=== PATIENT | male | born 1995 | race Caucasian/White ===

== ENCOUNTER 2022-06-08 13:24 | Outpatient (REF) | payer OTHER, SELFPAY ==
[2022-06-08 14:14] LABS: MANUAL DIFF FLAG NO
[2022-06-08 14:19] LABS: Basophils Absolute Auto 0.1 X10*3/uL (0.0-0.2); Basophils Percent Auto 0.6 % (0-2); Eosinophils Absolute Auto 0.2 X10*3/uL (0.0-0.4); Eosinophils Percent Auto 2.5 % (0-4); Hemoglobin 14.5 g/dl (14.0-18.0); Imm Gran Abs Auto 0.07 X10*3/uL (0.00-0.03); Imm Gran Pct Auto 0.7 % (0.0-0.4); Lymphocytes Absolute Auto 3.3 X10*3/uL (1.2-4.9); Lymphocytes Percent Auto 33.6 % (20-40); Mean Corpuscular HGB Conc 33.7 g/dl (31.0-36.0); Mean Corpuscular Hemoglobin 26.4 pg (27.0-33.0); Mean Corpuscular Volume 78.3 fL (80.0-98.0); Mean Platelet Volume 9.8 fL (9.4-12.4); Monocytes Absolute Auto 0.7 X10*3/uL (0.1-1.2); Monocytes Percent Auto 6.8 % (2-11); Neutrophils Absolute Auto 5.5 x10*3/uL (2.0-8.3); Neutrophils Percent Auto 55.8 % (45-73); Platelet Count 380 X10*3/uL (160-400); Red Blood Count 5.49 X10*6/uL (4.60-5.80); Red Cell Distribution Width 12.7 % (11.0-16.0); White Blood Count 9.8 X10*3/uL (4.8-10.8)
[2022-06-08 14:56] LABS: Alanine Aminotransferase 28 U/L (0-40); Albumin Level 4.4 g/dL (3.5-5.0); Alkaline Phosphatase 65 U/L (39-117); Anion Gap 15 (12-20); Aspartate Amino Transferase 19 U/L (5-37); Bilirubin Total 0.3 mg/dL (0.0-1.0); Blood Urea Nitrogen 10 mg/dL (9-16); Calcium 9.4 mg/dL (8.4-10.2); Carbon Dioxide 27 mmol/L (22-29); Chloride 106 mmol/L (96-108); Cholesterol 124 mg/dL; Estimated Glomerular Filt Rate > 60; Glucose Random 95 mg/dL (60-115); HDL Cholesterol 30 mg/dL; LDL Cholesterol Calculated 79 mg/dl; Potassium 4.5 mmol/L (3.3-5.1); Sodium 143 mmol/L (135-145); Total Protein 7.7 g/dL (6.5-8.0); Triglycerides 75 mg/dL
== END 2022-06-08 13:25 | disposition home or self-care (01) ==
LOC: HO.HMGCLDS 13:24
PROVIDERS: PCP Internal Medicine; Visit Provider Internal Medicine
DX: Z00.00 Encounter for general adult medical examination without abnormal findings (principal); Z13.31 Encounter for screening for depression; E66.8 Other obesity; I10 Essential (primary) hypertension
CPT/HCPCS: 36415; 80053; 80061; 85025

== ENCOUNTER 2023-05-28 10:04 | Outpatient (REF) | payer BC, SELFPAY ==
[2023-05-28 11:23] LABS: Alanine Aminotransferase 20 U/L (0-40); Albumin Level 4.5 g/dL (3.5-5.0); Alkaline Phosphatase 64 U/L (39-117); Anion Gap 13 (12-20); Aspartate Amino Transferase 16 U/L (5-37); Bilirubin Total 0.5 mg/dL (0.0-1.0); Blood Urea Nitrogen 9 mg/dL (9-16); Calcium 9.8 mg/dL (8.4-10.2); Carbon Dioxide 25 mmol/L (22-29); Chloride 105 mmol/L (96-108); Estimated Glomerular Filt Rate > 60; Glucose Random 90 mg/dL (60-115); Potassium 4.1 mmol/L (3.3-5.1); Sodium 139 mmol/L (135-145); Total Protein 8.3 g/dL (6.5-8.0)
[2023-05-28 11:38] LABS: Thyroid Stimulating Hormone 0.42 uIU/mL (0.32-4.0)
[2023-05-28 11:38] LABS: Total Protein Urine Random < 7 mg/dL (<12)
== END 2023-05-28 10:05 | disposition home or self-care (01) ==
LOC: HO.LAB 10:04
PROVIDERS: PCP Internal Medicine; Visit Provider Internal Medicine
DX: E66.01 Morbid (severe) obesity due to excess calories (principal); Z00.00 Encounter for general adult medical examination without abnormal findings; I10 Essential (primary) hypertension; Z68.41 Body mass index [BMI] 40.0-44.9, adult
CPT/HCPCS: 36415; 80053; 84156; 84443

== ENCOUNTER 2023-06-08 11:59 | Inpatient (IN) | payer BC, SELFPAY ==
--- NOTE | ~2023-06-08 | CT_ITS ---
EXAMINATION: CT ABDOMEN AND PELVIS WITH CONTRAST CLINICAL INFORMATION: Diarrhea and right lower quadrant abdominal pain COMPARISON: None available. TECHNIQUE: Multidetector volumetric images were obtained from the superior aspect of the liver through the pubic symphysis following administration 85 mL of Omnipaque 350 intravenous contrast. Sagittal and coronal reformatted images were obtained on the technologist's workstation. Oral contrast: No This CT examination was performed using dose optimization techniques as appropriate, variously including the following: *Automated exposure control *Adjustment of mA and/or kV according to patient size (this includes techniques or standardized protocols for targeted exams where dose is matched to indication/reason for exam; i.e. extremities or head) *Use of iterative reconstruction technique DLP: 915 mGy-cm FINDINGS: LUNG BASES: The visualized lung bases are unremarkable. LIVER, GALLBLADDER, AND BILIARY TREE: Liver is of low attenuation due to hepatic steatosis without intrahepatic masses or ductal dilatation seen. The gallbladder is unremarkable with no evidence of radiopaque gallstones, gallbladder wall thickening, or obvious pericholecystic inflammatory changes. PANCREAS: Unremarkable. SPLEEN: Spleen is enlarged measured 14.9 cm. ADRENAL GLANDS: Unremarkable. KIDNEYS AND URETERS: The kidneys are normal in size, shape, and attenuation. No hydronephrosis, hydroureter, or calculi seen. No perinephric stranding. BLADDER: Normal of urinary bladder is mildly thickened but the bladder is not completely distended and neck may be result of incomplete distention. GASTROINTESTINAL TRACT: Appendix is mildly thickened surrounded by hazy mesentery with the largest dimension 1.0 cm there is no evidence of appendicoliths. No perforation seen. Findings are suggestive for acute appendicitis. ABDOMINAL WALL: No significant hernia is appreciated. LYMPH NODES: Normal. VASCULAR: Unremarkable. PELVIC VISCERA: Unremarkable. OSSEOUS STRUCTURES: Unremarkable. CT/CT abdomen pelvis w IV con IMPRESSION: 1. Acute appendicitis. 2. Hepatic steatosis and splenomegaly. Fleischner guidelines were followed.
[2023-06-08 12:13] VITALS: BP 141/89; PULSE 78; RESP 19; TEMP 36.6; O2SAT 98; BMI 39.4
--- NOTE | 2023-06-08 12:14 | ED_ITS ---
HPI - General Adult General Chief complaint: Abdominal Pain Stated complaint: R Side Pain Dizzy Time Seen by Provider: 06/08/23 17:13 Source: patient Mode of arrival: ambulatory Limitations: no limitations History of Present Illness HPI narrative: Patient is a 27-year-old male who presents emergency department for evaluation of abdominal pain. Patient reports right lower quadrant abdominal pain x3 days that has been constant in nature with variable intensity at times it is exacerbated with movement is/urination/bowel movements. He reports multiple episodes of diarrhea described as liquid stools orange/yellow in color 3-4 times daily. Denies hematochezia or melena. Denies nausea or vomiting. She denies urinary frequency/urgency/hesitancy, hematuria. Denies fevers or chills. Denies recent unintentional weight loss. Additionally he is expressing concern about ongoing chest pain that has been present for more than 1 month. He was seen at [facility] and followed up with his primary care provider. 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 He has been having the pain in his chest since yesterday, it is episodic in nature, unable to identify specific aggravating or alleviating factors. He also gets intermittent dizziness associated with this, described as a head fullness when the pain is intense. At this time he denies dizziness. Denies any headache, vision changes, neck pain, numbness or tingling of the extremities, shortness of breath or difficulty breathing. Related Data Home Medications Medication Instructions Recorded Confirmed metoprolol succinate 50 mg 100 mg PO DAILY 06/08/23 06/08/23 tablet,extended release 24 hr sertraline 50 mg tablet 50 mg PO QAM 06/08/23 06/08/23 Allergies Allergy/AdvReac Type Severity Reaction Status Date / Time No Known Allergies Allergy Verified 06/08/23 12:13 Review of Systems Review of Systems: Constitutional : No Weight loss, No Fever, No Chills ENT/Mouth :? No sore throat, No Rhinorrhea Eyes: No Swelling, No Redness Cardiovascular : Positive Chest Pain, No SOB, No Edema Respiratory : No Cough, No Sputum, No Wheezing Gastrointestinal : No Nausea, no Vomiting, positive Diarrhea, positive abdominal pain, No Hematochezia, No Melena Genitourinary : No Dysuria, No Urinary Frequency, No Hematuria, No Urgency? Musculoskeletal : No joint pain, No Myalgias, No Joint Swelling Skin : No Skin Lesions, No rash Neuro : No Weakness, No Numbness, No Dizziness, No Headache Psych : No Anxiety/Panic, No Depression Heme/Lymph: No Bruising, No Lymphadenopathy Endocrine : No Polyuria, No Polydipsia Yes all other systems are reviewed and are negative PMFSH Past Medical History Attestation statement: The following information was validated with the patient. Source: old records reviewed Medical History (Updated 06/09/23 @ 00:54 by Jerald Oneill MD) Depression Hypertension Social History Social History Household Members: Family Housing: House Do you presently have visiting nurse or other home services: No Alcohol intake: never Patient Tobacco Use Status: Never used Tobacco Smoked in Last 30 Days: No Use of substances other than those prescribed or required for medical reasons: No Have you been hit, kicked, punched, or otherwise hurt by someone within the past year? If so, by whom?: No Do you feel safe in your current relationship?: Yes Is there a partner from a previous relationship who is making you feel unsafe now?: No Are you made to feel afraid or neglected: No Advance Directives: No Advance Directives Information Provided: No Do you have thoughts of harming others: None Do you have a plan to hurt others: No Plan Recently lost weight without trying: Yes How much weight loss: 2-13 pounds Eating poorly because of decreased appetite: No Nutrition screen score: 3 Nutrition Risks: No Nutritional Risk Poor oral hygiene: No Physical Exam ED Vital Signs: Vital Signs - 24 hr 06/08/23 12:13 06/08/23 18:04 Temperature 98 F 98.2 F Pulse Rate 78 72 Respiratory Rate 19 18 Blood Pressure 141/89 H 129/61 Pulse Oximetry 98 96 Oxygen Delivery Method Room Air BMI result Body Mass Index 39.4 Appearance: Alert.?Oriented to person, place and time. No acute distress.?Normal affect. Eyes: Pupils equal, round and reactive to light.? ENT: Pharynx normal.?? Neck: Normal inspection.? Neck supple.?? CVS: Heart sounds normal. Normal heart rate and rhythm.? Pulses normal.?? Respiratory: No respiratory distress.? Lung sounds clear to auscultation bilaterally?? Abdomen: Soft with mild tenderness upon deep palpation of the right lower quadrant. No rigidity. No guarding.. Mild right CVA tenderness Normoactive bowel sounds. ? Skin: Skin warm and dry.? Normal skin color.? Extremities: No lower extremity edema.? Neuro: Moves all extremities spontaneously. Sensation intact bilaterally. CN II- XII intact. No focal neuro deficits. Ambulates with normal steady gait. Course Course Course Narrative: This is an RME: Additional HPI, ROS, PE not included below will be deferred to primary provider. This is a [id number], presenting to the emergency department with complaints of intermittent right sided abdominal pain since yesterday. Reports diarrhea. Reports pain worsens with urination. Admits to having some dizziness as well. Was seen at [facility] for CP/dizziness 1 month ago - workup negative. Will obtain records. VSS. Will defer imaging until seen by pain provider. Plan: Labs, UA Reevaluation(s) Reevaluation #1: CBC reveals a mild leukocytosis of 13.2, no notable anemia. CMP is overall unremarkable, lipase is within normal limits no JENA or electrolyte derangement. Urinalysis is without evidence of infection or microscopic hematuria Time: 17:41 Reevaluation #2: Troponin is <2.7, EKG revealing normal sinus rhythm without acute ischemic findings, unlikely ACS given duration of symptoms. Received call from Radiology, acute appendicitis, consult surgery Corin Oneill; he will be admitted to surgical service with plan for surgery in the morning. Patient updated on plan of care and is agreeable. Covered with Levaquin and metronidazole. Time: 19:31 Medications Administered Generic Name Dose Route Start Last Admin Trade Name Freq PRN Reason Stop Dose Admin Dextrose/Sodium Chloride 1,000 mls @ 100 mls/hr 06/08/23 19:45 06/08/23 20:33 D5ns IVCONT 100 mls/hr .Q10H MEIR Administration Piperacillin Sod/Tazobactam 50 mls @ 100 mls/hr 06/08/23 20:00 06/08/23 21:11 Sod 3.375 gm/ Sodium Chloride IV Infused Q6H MEIR Infusion Ondansetron HCl 4 mg 06/08/23 19:46 06/08/23 22:58 Ondansetron Hcl 4 Mg/2 Ml Vial IVPUSH 4 mg Q6H PRN Administration nausea Sodium Chloride 3 ml 06/09/23 00:00 06/08/23 22:14 0.9 % Sodium Chloride Flush 3 Ml Syringe IVFLUSH Not Given QSHIFT MEIR Discontinued Medications Generic Name Dose Route Start Last Admin Trade Name Denise PRN Reason Stop Dose Admin Sodium Chloride 1,000 mls @ 999 mls/hr 06/08/23 17:45 06/08/23 20:30 Ns IV 06/08/23 18:45 Infused .Q1H1M MEIR Infusion Levofloxacin 750 mg in 150 mls @ 100 mls/hr 06/08/23 19:33 06/08/23 22:33 Levaquin IV 06/08/23 21:02 Infused ONCE ONE Infusion Metronidazole 500 mg in 100 mls @ 100 mls/hr 06/08/23 19:33 06/08/23 21:10 Flagyl IV 06/08/23 20:32 Infused ONCE ONE Infusion Iohexol 100 ml 06/08/23 18:21 06/08/23 18:21 Iohexol 350 Mg/Ml 100 Ml Infus..Btl IV 06/08/23 18:22 85 ml ONCE ONE Administration Medical Decision Making Medical Decision Making MDM Narrative: Patient is a 27-year-old male who presents emergency department for evaluation of abdominal pain in additionally reporting ongoing chest pain for which she is currently receiving outpatient workup. Time of my examination he is overall well-appearing, nontoxic, afebrile without tachycardia. He is in no apparent distress. Speaking clear full sentences. Abdominal examination is notable for mild right lower quadrant tenderness upon deep palpation and right CVA tenderness, at this time does not appear consistent with acute abdomen there is no rigidity or guarding. Regarding his chest pain, this is ongoing, he is recei ving outpatient workup with his primary care provider and has an echocardiogram, sleep study, and cardiology referral already established. Although he is endorsing chest pain at this time, will obtain EKG and troponin for further evaluation though I have a low suspicion for ACS at this time. PERC negative unlikely for PE. No upper respiratory symptoms, lower suspicion for pneumonia was pneumothorax. Will obtain CBC to evaluate for leukocytosis/ anemia, CMP and lipase to evaluate for abnormal electrolytes /abnormal renal function/ abnormal hepatic/biliary function, EKG and troponin to evaluate for ischemia/ACS. CT of the abdomen and pelvis and Urinalysis. Differential Diagnosis Differential Diagnoses: The differential diagnosis associated with the presentation includes (Appendicitis, ureteral calculi, renal colic, hydroneph rosis, colitis, diverticulitis) Admission/Observation Consideration of admission/observation: Escalation of care including admission/observation considered (Concern admission for abdominal pain and chest pain, see course narrative for further detail) Lab Data MDM Lab Attestation statement: I reviewed the patient's lab results. (See course narrative for further detail) 06/08/23 14:43 06/08/23 13:14 Labs: Lab Results 06/08/23 06/08/23 06/08/23 Range/Units 13:14 13:14 14:43 WBC 13.2 H (4.8-10.8) X10*3/uL RBC 5.60 (4.60-5.80) X10*6/uL Hgb 14.9 (14.0-18.0) g/dl Hct 43.2 (42.0-52.0) % MCV 77.1 L (80.0-98.0) fL MCH 26.6 L (27.0-33.0) pg MCHC 34.5 (31.0-36.0) g/dl RDW 12.3 (11.0-16.0) % Plt Count 358 (160-400) X10*3/uL MPV 9.6 (9.4-12.4) fL Immature Gran % (Auto) 0.2 (0.0-0.4) % Neut % (Auto) 75.3 H (45-73) % Lymph % (Auto) 17.8 L (20-40) % Mclean % (Auto) 6.0 (2-11) % Eos % (Auto) 0.4 (0-4) % Baso % (Auto) 0.3 (0-2) % Lymph # (Auto) 2.4 (1.2-4.9) X10*3/uL Mclean # (Auto) 0.8 (0.1-1.2) X10*3/uL Eos # (Auto) 0.1 (0.0-0.4) X10*3/uL Baso # (Auto) 0.0 (0.0-0.2) X10*3/uL Abs Immat Gran (auto) 0.03 (0.00-0.03) X10*3/uL Absolute Neuts (auto) 10.0 H (2.0-8.3) x10*3/uL Absolute Nucleated RBC 0.000 (0.0-0.012) X10*3/uL Nucleated RBC % (auto) 0.0 (0.0-0.2) /100WBC Sodium 139 (135-145) mmol/L Potassium 3.8 (3.3-5.1) mmol/L Chloride 105 (96-108) mmol/L Carbon Dioxide 26 (22-29) mmol/L Anion Gap 12 (12-20) BUN 7 L (9-16) mg/dL Creatinine 0.70 (0.5-1.4) mg/dL Estim Creat Clear Calc 192.8 Estimated GFR > 60 Random Glucose 89 (60-115) mg/dL Calcium 9.9 (8.4-10.2) mg/dL Total Bilirubin 0.4 (0.0-1.0) mg/dL Direct Bilirubin 0.2 (0.0-0.5) mg/dL AST 16 (5-37) U/L ALT 26 (0-40) U/L Alkaline Phosphatase 58 (39-117) U/L Troponin I High Sens (<3.5-35.0) ng/L Total Protein 8.4 H (6.5-8.0) g/dL Albumin 4.5 (3.5-5.0) g/dL Lipase 27 (8-78) U/L Urine Color Yellow Urine Appearance Clear Urine pH 6.0 (5.0-9.0) Ur Specific [place] <= 1.005 (1.005-1.025) Urine Protein Negative (Neg-Trace) mg/dL Urine Glucose (UA) Negative (Negative) mg/dL Urine Ketones 15 (Negative) mg/dL Urine Blood Negative (Negative) Urine Nitrite Negative (Negative) Ur Leukocyte Esterase Negative (Negative) 06/08/23 Range/Units 17:55 WBC (4.8-10.8) X10*3/uL RBC (4.60-5.80) X10*6/uL Hgb (14.0-18.0) g/dl Hct (42.0-52.0) % MCV (80.0-98.0) fL MCH (27.0-33.0) pg MCHC (31.0-36.0) g/dl RDW (11.0-16.0) % Plt Count (160-400) X10*3/uL MPV (9.4-12.4) fL Immature Gran % (Auto) (0.0-0.4) % Neut % (Auto) (45-73) % Lymph % (Auto) (20-40) % Mclean % (Auto) (2-11) % Eos % (Auto) (0-4) % Baso % (Auto) (0-2) % Lymph # (Auto) (1.2-4.9) X10*3/uL Mclean # (Auto) (0.1-1.2) X10*3/uL Eos # (Auto) (0.0-0.4) X10*3/uL Baso # (Auto) (0.0-0.2) X10*3/uL Abs Immat Gran (auto) (0.00-0.03) X10*3/uL Absolute Neuts (auto) (2.0-8.3) x10*3/uL Absolute Nucleated RBC (0.0-0.012) X10*3/uL Nucleated RBC % (auto) (0.0-0.2) /100WBC Sodium (135-145) mmol/L Potassium (3.3-5.1) mmol/L Chloride (96-108) mmol/L Carbon Dioxide (22-29) mmol/L Anion Gap (12-20) BUN (9-16) mg/dL Creatinine (0.5-1.4) mg/dL Estim Creat Clear Calc Estimated GFR Random Glucose (60-115) mg/dL Calcium (8.4-10.2) mg/dL Total Bilirubin (0.0-1.0) mg/dL Direct Bilirubin (0.0-0.5) mg/dL AST (5-37) U/L ALT (0-40) U/L Alkaline Phosphatase (39-117) U/L Troponin I High Sens < 2.7 (<3.5-35.0) ng/L Total Protein (6.5-8.0) g/dL Albumin (3.5-5.0) g/dL Lipase (8-78) U/L Urine Color Urine Appearance Urine pH (5.0-9.0) Ur Specific [place] (1.005-1.025) Urine Protein (Neg-Trace) mg/dL Urine Glucose (UA) (Negative) mg/dL Urine Ketones (Negative) mg/dL Urine Blood (Negative) Urine Nitrite (Negative) Ur Leukocyte Esterase (Negative) Independent Interpretation I performed an independent interpretation of an: EKG Interpretation: Rate: 69 Rhythm:? Normal sinus rhythm Floweree:? Normal Normal P waves.? Normal SEBAS.?? Normal QRS complex.?? ST T wave :??No ST elevation, no ST depression qTC: 420 prior studies:? None available for review The study has been interpreted contemporaneously by me. Radiology Impression Discussion of test interpretation with radiology: I have reviewed the radiologist's reading. Radiologist Impression: CT/CT abdomen pelvis w IV con IMPRESSION: 1.? Acute appendicitis. 2.? Hepatic steatosis and splenomegaly. Discharge Plan Discharge Clinical Impression: Appendicitis Patient Disposition: Admitted As Inpatient Interventions: Admission Worksheet (ED) Last Done: 06/08/23 21:28 Discharge Date/Time: 06/08/23 21:29
[2023-06-08 13:25] LABS: Appearance Urine Clear; Color Urine Yellow; Glucose Urine UA Negative (Negative); Leukocyte Esterase Urine Negative (Negative); Nitrite Urine Negative (Negative); Specific Gravity - Urine <= 1.005 (1.005-1.025); Urine Blood Negative (Negative); Urine Ketones 15 mg/dL (Negative); Urine Protein Negative (Neg-Trace)
[2023-06-08 13:35] LABS: Alanine Aminotransferase 26 U/L (0-40); Albumin Level 4.5 g/dL (3.5-5.0); Alkaline Phosphatase 58 U/L (39-117); Anion Gap 12 (12-20); Aspartate Amino Transferase 16 U/L (5-37); Bilirubin Direct 0.2 mg/dL (0.0-0.5); Bilirubin Total 0.4 mg/dL (0.0-1.0); Blood Urea Nitrogen 7 mg/dL (9-16); Calcium 9.9 mg/dL (8.4-10.2); Carbon Dioxide 26 mmol/L (22-29); Chloride 105 mmol/L (96-108); Creatinine Clr Calc Pharmacy 192.8; Estimated Glomerular Filt Rate > 60; Glucose Random 89 mg/dL (60-115); Lipase 27 U/L (8-78); Potassium 3.8 mmol/L (3.3-5.1); Sodium 139 mmol/L (135-145); Total Protein 8.4 g/dL (6.5-8.0)
[2023-06-08 14:59] LABS: Basophils Percent Auto 0.3 % (0-2); Eosinophils Absolute Auto 0.1 X10*3/uL (0.0-0.4); Eosinophils Percent Auto 0.4 % (0-4); Hematocrit 43.2 % (42.0-52.0); Hemoglobin 14.9 g/dl (14.0-18.0); Imm Gran Abs Auto 0.03 X10*3/uL (0.00-0.03); Imm Gran Pct Auto 0.2 % (0.0-0.4); Lymphocytes Absolute Auto 2.4 X10*3/uL (1.2-4.9); Lymphocytes Percent Auto 17.8 % (20-40); Mean Corpuscular HGB Conc 34.5 g/dl (31.0-36.0); Mean Corpuscular Hemoglobin 26.6 pg (27.0-33.0); Mean Corpuscular Volume 77.1 fL (80.0-98.0); Mean Platelet Volume 9.6 fL (9.4-12.4); Monocytes Absolute Auto 0.8 X10*3/uL (0.1-1.2); Neutrophils Percent Auto 75.3 % (45-73); Platelet Count 358 X10*3/uL (160-400); Red Cell Distribution Width 12.3 % (11.0-16.0); White Blood Count 13.2 X10*3/uL (4.8-10.8)
--- NOTE | 2023-06-08 17:32 | ECG_ITS ---
Test Reason : chest pain Blood Pressure : / mmHG Vent. Rate : 069 BPM Atrial Rate : 069 BPM P-R Int : 130 ms QRS Dur : 104 ms QT Int : 392 ms P-R-T Axes : 000 015 129 degrees QTc Int : 420 ms Normal sinus rhythm with sinus arrhythmia Low voltage QRS Nonspecific T wave abnormality Abnormal ECG No previous ECGs available Referred By: Cary Sahu Electronically Signed By:CHADWICK CARREON
[2023-06-08] MEDS: 0.9 % Sodium Chloride 1,000 ML 999 ML IV (17:58)
[2023-06-08 18:04] VITALS: BP 129/61; PULSE 72; RESP 18; TEMP 36.8; O2SAT 96
[2023-06-08] MEDS: iohexoL 350 MG/ML 100 ML INFUS..BTL IV (18:21)
[2023-06-08 18:33] LABS: Troponin-I High Sensitivity < 2.7 ng/L (<3.5-35.0)
[2023-06-08] MEDS: metroNIDAZOLE/NS 500 MG/100 ML PIGGYBACK 100 MG IV (19:45)
--- NOTE | 2023-06-08 19:51 | PHA.MEDREC ---
Pharmacy Consult ? Medication Reconciliation Pharmacy has completed the medication reconciliation. Patient reported medicaitons. Nae Robert, GarrettD
[2023-06-08] MEDS: Dextrose 5 % and 0.9 % NaCl 1,000 ML 100 ML IVCONT (20:33)
[2023-06-08] MEDS: Piperacillin Sodium/Tazobactam 3.375 GM in 0.9 % Sodium Chloride 50 ML IV (20:33)
[2023-06-08] MEDS: levoFLOXacin/D5W 750 MG/150 ML PIGGYBACK 100 MG IV (21:02)
[2023-06-08 21:37] VITALS: BMI 39.5
[2023-06-08 21:44] VITALS: BP 125/77; PULSE 72; RESP 20; TEMP 36; O2SAT 99
[2023-06-08] MEDS: ondansetron HCL 4 MG/2 ML VIAL IVPUSH (22:58)
[2023-06-09] VITALS (12 sets, daily range): BP systolic 124–139; BP diastolic 68–90; PULSE 57–96; RESP 16–20; TEMP 36.1–36.5; O2SAT 95–100
--- NOTE | 2023-06-09 00:50 | PM.HPGS ---
History of Present Illness History of Present Illness Date of Service: 06/10/23 Chief complaint: Acute Appendicitis Narrative: Elie Singh is a 27 year old male admitted for abdominal pain tonight. He says this started Tuesday, which is about 3 days ago. He says the pain has not been severe, but constant on the RLQ and periumbilical area. he describes some nausea this morning but not vomitting. He says he had a similar pain about 1 month ago which lasted for 2 days. He does describes some loose stools for over a week now. He also feels that he seems to have pain on the RLQ with urination as well. Review of Systems Constitutional: Constitutional: Denies chills and Denies fever(s) Cardiovascular: Cardiovascular: Denies chest pain, Denies dyspnea and Denies dyspnea on exertion Respiratory: Respiratory: Denies cough, Denies dyspnea and Denies dyspnea on exertion Gastrointestinal: Gastrointestinal: Reports as per HPI (loose stools), Denies hematochezia and Denies change in bowel habits Genitourinary: Genitourinary: Denies hematuria and Denies difficulty urinating Musculoskeletal: Musculoskeletal: Denies back pain and Denies limited range of motion Neurologic: Denies focal weakness and Denies convulsions Psychiatric: Psychiatric: Denies depression and Denies mood swings PMFSH Past Medical History Medical History Depression Hypertension Social History Social History Household Members: Family Housing: House Do you presently have visiting nurse or other home services: No Alcohol intake: never Patient Tobacco Use Status: Never used Tobacco Smoked in Last 30 Days: No Second Hand Smoke Exposure: No Use of substances other than those prescribed or required for medical reasons: No Currently Displaying Signs/Symptoms of Drug Intoxication Withdrawal: No Have you been hit, kicked, punched, or otherwise hurt by someone within the past year? If so, by whom?: No Do you feel safe in your current relationship?: Yes Is there a partner from a previous relationship who is making you feel unsafe now?: No Are you made to feel afraid or neglected: No Are you DNR?: No Advance Directives: No Advance Directives Information Provided: No Advance Directives on File: No Do you have thoughts of harming others: None Do you have a plan to hurt others: No Plan Recently lost weight without trying: Yes How much weight loss: 2-13 pounds Eating poorly because of decreased appetite: No Nutrition screen score: 3 Nutrition Risks: No Nutritional Risk Poor oral hygiene: No service: No Meds Allergies Allergy/AdvReac Type Severity Reaction Status Date / Time No Known Allergies Allergy Verified 06/08/23 12:13 Active Medications: Current Medications Dextrose/Sodium Chloride (D5ns) 1,000 mls @ 100 mls/hr IVCONT .Q10H [facility] Last Admin: 06/08/23 20:33 Dose: 100 mls/hr Piperacillin Sod/Tazobactam (Sod 3.375 gm/ Sodium Chloride) 50 mls @ 100 mls/hr IV Q6H [facility] Last Infusion: 06/08/23 21:11 Dose: Infused Morphine Sulfate (Morphine Sulfate 4 Mg/Ml Cartridge) 3 mg IVPUSH Q4H PRN; Protocol PRN Reason: pain, severe Ondansetron HCl (Ondansetron Hcl 4 Mg/2 Ml Vial) 4 mg IVPUSH Q6H PRN PRN Reason: nausea Last Admin: 06/08/23 22:58 Dose: 4 mg Sodium Chloride (0.9 % Sodium Chloride Flush 3 Ml Syringe) [facility] Last Admin: 06/08/23 22:14 Dose: Not Given Home Medications Medication Instructions Recorded Confirmed Last Taken Type metoprolol succinate 50 mg 100 mg PO DAILY 06/08/23 06/08/23 06/08/23 History tablet,extended release 24 hr sertraline 50 mg tablet 50 mg PO QAM 06/08/23 06/08/23 06/08/23 History Physical Exam Vital Signs: Vital Signs: Last Vital Signs Temp 96.8 F 06/08/23 21:44 Pulse 72 06/08/23 21:44 Resp 20 06/08/23 21:44 BP 125/77 06/08/23 21:44 Pulse Ox 99 06/08/23 21:44 O2 Del Method Room Air 06/08/23 21:44 BMI result Body Mass Index 39.5 Const: Other: appears obese General: comfortable and no acute distress Orientation/consciousness: patient oriented x3 Neck: Neck: Yes no lymphadenopathy Resp: Auscultation: clear to auscultation bilaterally Cardio: Rhythm: regular rhythm GI: Other: mild tenderness, RLQ, no guarding or rebound Palpation (GI): Soft to palpation, Tenderness to palpation present (GI) and no guarding Neuro: General: patient oriented x3 Results Results Labs: Short CBC 06/08/23 Range/Units 14:43 WBC 13.2 H (4.8-10.8) X10*3/uL Hgb 14.9 (14.0-18.0) g/dl Hct 43.2 (42.0-52.0) % Plt Count 358 (160-400) X10*3/uL BMP 06/08/23 13:14 Sodium 139 Potassium 3.8 Chloride 105 Carbon Dioxide 26 BUN 7 L Creatinine 0.70 Calcium 9.9 Liver Function 06/08/23 Range/Units 13:14 Total Bilirubin 0.4 (0.0-1.0) mg/dL Direct Bilirubin 0.2 (0.0-0.5) mg/dL AST 16 (5-37) U/L ALT 26 (0-40) U/L Alkaline Phosphatase 58 (39-117) U/L Albumin 4.5 (3.5-5.0) g/dL Urine 06/08/23 Range/Units 13:14 Urine Color Yellow Urine Appearance Clear Urine pH 6.0 (5.0-9.0) Ur Specific [place] <= 1.005 (1.005-1.025) Urine Protein Negative (Neg-Trace) mg/dL Urine Glucose (UA) Negative (Negative) mg/dL Laboratory Results WBC 13.2 X10*3/uL (4.8-10.8) H 06/08/23 14:43 RBC 5.60 X10*6/uL (4.60-5.80) 06/08/23 14:43 Hgb 14.9 g/dl (14.0-18.0) 06/08/23 14:43 Hct 43.2 % (42.0-52.0) 06/08/23 14:43 MCV 77.1 fL (80.0-98.0) L 06/08/23 14:43 MCH 26.6 pg (27.0-33.0) L 06/08/23 14:43 MCHC 34.5 g/dl (31.0-36.0) 06/08/23 14:43 RDW 12.3 % (11.0-16.0) 06/08/23 14:43 Plt Count 358 X10*3/uL (160-400) 06/08/23 14:43 MPV 9.6 fL (9.4-12.4) 06/08/23 14:43 Immature Gran % (Auto) 0.2 % (0.0-0.4) 06/08/23 14:43 Neut % (Auto) 75.3 % (45-73) H 06/08/23 14:43 Lymph % (Auto) 17.8 % (20-40) L 06/08/23 14:43 [place] % (Auto) 6.0 % (2-11) 06/08/23 14:43 Eos % (Auto) 0.4 % (0-4) 06/08/23 14:43 Baso % (Auto) 0.3 % (0-2) 06/08/23 14:43 Lymph # (Auto) 2.4 X10*3/uL (1.2-4.9) 06/08/23 14:43 [place] # (Auto) 0.8 X10*3/uL (0.1-1.2) 06/08/23 14:43 Eos # (Auto) 0.1 X10*3/uL (0.0-0.4) 06/08/23 14:43 Baso # (Auto) 0.0 X10*3/uL (0.0-0.2) 06/08/23 14:43 Abs Immat Gran (auto) 0.03 X10*3/uL (0.00-0.03) 06/08/23 14:43 Absolute Neuts (auto) 10.0 x10*3/uL (2.0-8.3) H 06/08/23 14:43 Absolute Nucleated RBC 0.000 X10*3/uL (0.0-0.012) 06/08/23 14:43 Nucleated RBC % (auto) 0.0 /100WBC (0.0-0.2) 06/08/23 14:43 Sodium 139 mmol/L (135-145) 06/08/23 13:14 Potassium 3.8 mmol/L (3.3-5.1) 06/08/23 13:14 Chloride 105 mmol/L (96-108) 06/08/23 13:14 Carbon Dioxide 26 mmol/L (22-29) 06/08/23 13:14 Anion Gap 12 (12-20) 06/08/23 13:14 BUN 7 mg/dL (9-16) L 06/08/23 13:14 Creatinine 0.70 mg/dL (0.5-1.4) 06/08/23 13:14 Estim Creat Clear Calc 192.8 06/08/23 13:14 Estimated GFR > 60 06/08/23 13:14 Random Glucose 89 mg/dL (60-115) 06/08/23 13:14 Calcium 9.9 mg/dL (8.4-10.2) 06/08/23 13:14 Total Bilirubin 0.4 mg/dL (0.0-1.0) 06/08/23 13:14 Direct Bilirubin 0.2 mg/dL (0.0-0.5) 06/08/23 13:14 AST 16 U/L (5-37) 06/08/23 13:14 ALT 26 U/L (0-40) 06/08/23 13:14 Alkaline Phosphatase 58 U/L (39-117) 06/08/23 13:14 Troponin I High Sens < 2.7 ng/L (<3.5-35.0) 06/08/23 17:55 Total Protein 8.4 g/dL (6.5-8.0) H 06/08/23 13:14 Albumin 4.5 g/dL (3.5-5.0) 06/08/23 13:14 Lipase 27 U/L (8-78) 06/08/23 13:14 Urine Color Yellow 06/08/23 13:14 Urine Appearance Clear 06/08/23 13:14 Urine pH 6.0 (5.0-9.0) 06/08/23 13:14 Ur Specific [place] <= 1.005 (1.005-1.025) 06/08/23 13:14 Urine Protein Negative mg/dL (Neg-Trace) 06/08/23 13:14 Urine Glucose (UA) Negative mg/dL (Negative) 06/08/23 13:14 Urine Ketones 15 mg/dL (Negative) 06/08/23 13:14 Urine Blood Negative (Negative) 06/08/23 13:14 Urine Nitrite Negative (Negative) 06/08/23 13:14 Ur Leukocyte Esterase Negative (Negative) 06/08/23 13:14 Impressions Abdomen/Pelvis CT 06/08/23 18:26 IMPRESSION: 1. Acute appendicitis. 2. Hepatic steatosis and splenomegaly. Fleischner guidelines were followed. Assessment and Plan (1) Appendicitis: Status: Acute He has RLQ pain and tenerness, and his CT scan shows some dilatation of the appendix, with surrounding haziness suggestive of acute appendicitis. There is no appendicolith seen. I explained to him the option of proceeding with appendectomy. I reviewed the technique of laparoscopic appendectomy, poss. open. I explained the risks including but not limited to bleeding, infections, bowel injury, obstruction,injury to other organs, as well as the benefits and alternatives. His overall constellation of symptoms is a little atypical so I will also review the images with the radiologist. Time Spent With Patient Time: Total time managing care of this patient today ____ minutes. Quality Stroke Does the patient have a stroke diagnosis?: No VTE Prior VTE?: No VTE Risk Level:: Medical - low VTE Device Contraindication: N/A - Device Ordered VTE Drug Contraindication: Treatment Not Indicated Procedures Date of Service Date of Service: 06/10/23
[2023-06-09] MEDS: Piperacillin Sodium/Tazobactam 3.375 GM in 0.9 % Sodium Chloride 50 ML IV ×2 (02:08→07:21)
[2023-06-09 05:57] LABS: Hematocrit 40.8 % (42.0-52.0); Mean Corpuscular HGB Conc 34.3 g/dl (31.0-36.0); Mean Corpuscular Hemoglobin 26.8 pg (27.0-33.0); Mean Platelet Volume 10.1 fL (9.4-12.4); Platelet Count 300 X10*3/uL (160-400); Red Blood Count 5.23 X10*6/uL (4.60-5.80); Red Cell Distribution Width 12.1 % (11.0-16.0); White Blood Count 8.6 X10*3/uL (4.8-10.8)
[2023-06-09] MEDS: Dextrose 5 % and 0.9 % NaCl 1,000 ML 100 ML IVCONT (06:18)
--- NOTE | 2023-06-09 08:07 | HO.ANESPROP2 ---
HPI - Anesthesia Eval Consult details Narrative: 27 yo male patient for Laparoscopic appendectomy PMFSH Active Problems Active Problems: All Active Problems (Updated 06/09/23 @ 08:07 by Erica Renee MD) Hypertension (Acute) Depression (Acute) Appendicitis (Acute) Obesity BMI 39.5 Past Medical History Medical History Depression Hypertension Family History Family history of problems with anesthesia: No Surgical History History of Problems with Anesthesia: No Social History Social History Household Members: Family Housing: House Do you presently have visiting nurse or other home services: No Alcohol intake: never Patient Tobacco Use Status: Never used Tobacco Smoked in Last 30 Days: No Second Hand Smoke Exposure: No Use of substances other than those prescribed or required for medical reasons: No Currently Displaying Signs/Symptoms of Drug Intoxication Withdrawal: No Have you been hit, kicked, punched, or otherwise hurt by someone within the past year? If so, by whom?: No Do you feel safe in your current relationship?: Yes Is there a partner from a previous relationship who is making you feel unsafe now?: No Are you made to feel afraid or neglected: No Are you DNR?: No Advance Directives: No Advance Directives Information Provided: No Advance Directives on File: No Do you have thoughts of harming others: None Do you have a plan to hurt others: No Plan Recently lost weight without trying: Yes How much weight loss: 2-13 pounds Eating poorly because of decreased appetite: No Nutrition screen score: 3 Nutrition Risks: No Nutritional Risk Poor oral hygiene: No Meds Allergies Allergy/AdvReac Type Severity Reaction Status Date / Time No Known Allergies Allergy Verified 06/08/23 12:13 Active Medications: Current Medications Dextrose/Sodium Chloride (D5ns) 1,000 mls @ 100 mls/hr IVCONT .Q10H [facility] Last Admin: 06/09/23 06:18 Dose: 100 mls/hr Piperacillin Sod/Tazobactam (Sod 3.375 gm/ Sodium Chloride) 50 mls @ 100 mls/hr IV Q6H [facility] Last Infusion: 06/09/23 07:52 Dose: Infused Morphine Sulfate (Morphine Sulfate 4 Mg/Ml Cartridge) 3 mg IVPUSH Q4H PRN; Protocol PRN Reason: pain, severe Ondansetron HCl (Ondansetron Hcl 4 Mg/2 Ml Vial) 4 mg IVPUSH Q6H PRN PRN Reason: nausea Last Admin: 06/08/23 22:58 Dose: 4 mg Sodium Chloride (0.9 % Sodium Chloride Flush 3 Ml Syringe) 3 ml IVFLUSH QSNJFT [facility] Last Admin: 06/09/23 06:48 Dose: Not Given Home Medications Medication Instructions Recorded Confirmed Last Taken Type metoprolol succinate 50 mg 100 mg PO DAILY 06/08/23 06/08/23 06/08/23 History tablet,extended release 24 hr sertraline 50 mg tablet 50 mg PO QAM 06/08/23 06/08/23 06/08/23 History Exam Exam Date and Time: June 09, 2023 0807 Height,Weight and Vital Signs: Height 5 ft 7 in Weight 114.5 kg Last Vital Signs Temp 97.3 F 06/09/23 07:20 Pulse 72 06/09/23 07:20 Resp 18 06/09/23 07:20 BP 133/79 06/09/23 07:20 Pulse Ox 99 06/09/23 07:20 O2 Del Method Room Air 06/09/23 07:20 Pertinent Lab Results Pertinent Lab Results: Laboratory Tests 06/08/23 06/08/23 06/08/23 13:14 13:14 14:43 WBC 13.2 H RBC 5.60 Hgb 14.9 Hct 43.2 MCV 77.1 L MCH 26.6 L MCHC 34.5 RDW 12.3 Plt Count 358 MPV 9.6 Immature Gran % (Auto) 0.2 Neut % (Auto) 75.3 H Lymph % (Auto) 17.8 L [place] % (Auto) 6.0 Eos % (Auto) 0.4 Baso % (Auto) 0.3 Lymph # (Auto) 2.4 [place] # (Auto) 0.8 Eos # (Auto) 0.1 Baso # (Auto) 0.0 Abs Immat Gran (auto) 0.03 Absolute Neuts (auto) 10.0 H Absolute Nucleated RBC 0.000 Nucleated RBC % (auto) 0.0 Sodium 139 Potassium 3.8 Chloride 105 Carbon Dioxide 26 Anion Gap 12 BUN 7 L Creatinine 0.70 Estim Creat Clear Calc 192.8 Estimated GFR > 60 Random Glucose 89 Calcium 9.9 Total Bilirubin 0.4 Direct Bilirubin 0.2 AST 16 ALT 26 Alkaline Phosphatase 58 Troponin I High Sens Total Protein 8.4 H Albumin 4.5 Lipase 27 Urine Color Yellow Urine Appearance Clear Urine pH 6.0 Ur Specific [place] <= 1.005 Urine Protein Negative Urine Glucose (UA) Negative Urine Ketones 15 Urine Blood Negative Urine Nitrite Negative Ur Leukocyte Esterase Negative 06/08/23 06/09/23 17:55 05:04 WBC 8.6 RBC 5.23 Hgb 14.0 Hct 40.8 L MCV 78.0 L MCH 26.8 L MCHC 34.3 RDW 12.1 Plt Count 300 MPV 10.1 Immature Gran % (Auto) Neut % (Auto) Lymph % (Auto) [place] % (Auto) Eos % (Auto) Baso % (Auto) Lymph # (Auto) [place] # (Auto) Eos # (Auto) Baso # (Auto) Abs Immat Gran (auto) Absolute Neuts (auto) Absolute Nucleated RBC 0.000 Nucleated RBC % (auto) 0.0 Sodium Potassium Chloride Carbon Dioxide Anion Gap BUN Creatinine Estim Creat Clear Calc Estimated GFR Random Glucose Calcium Total Bilirubin Direct Bilirubin AST ALT Alkaline Phosphatase Troponin I High Sens < 2.7 Total Protein Albumin Lipase Urine Color Urine Appearance Urine pH Ur Specific [place] Urine Protein Urine Glucose (UA) Urine Ketones Urine Blood Urine Nitrite Ur Leukocyte Esterase Airway Mallampati Class: III TM Dist: >3cm Neck ROM: Full Loose/Missing/Broken Teeth: Yes (Broken tooth top left back. Denies missing or loose teeth) Heart: RRR Lungs: CTAB Assessment and Plan Assessment Anesthesia Assessment: Anesthesia Plan Discussed and Chart Reviewed Final Anesthetic Review Family History of Problems with Anesthesia: No History of Problems with Anesthesia: No NPO: Yes ASA Class: III (Big neck) and Emergency Final Preanesthetic Review: No Changes in Pt Med Stat, Meds/Allgs Chart Reviewed, Consent Obtained/Reviewed and Anes Risks/Benef Reviewed Patient Risk: Intermediate Procedure Risk: Intermediate Assessment/Block/Sedation in SS: Assess/Block/Sedation-SS Anesthetic Plan Anesthetic Plan: GA Disposition: Standard PACU
--- NOTE | 2023-06-09 08:23 | PM.EVENT ---
Event Note Date of Service: 06/09/23 Event Note: pt staes he still has RLQ pain and tenderness no other events overnight abd soft but still with some tenderness on RLQ CT reviewed with radiologist - some inflammatory changes around appendix c/w acute appendicitis, not complicated WBC down pt wants to proceed with appendetomy in view of persistent pain he understands the technique of laparoscopic appendectomy, possible open he is aware of the risks, benefits and alternatives Time Spent With Patient Time: Total time managing care of this patient today ____ minutes.
--- NOTE | 2023-06-09 09:30 | W.PM.OPN ---
Operative Note Operative Note Date of Service: 06/09/23 Narrative: Preop diagnosis: acute appendicitis Postop diagnosis: Acute appendicitis, erythematous distal 2/3 of the appendix Procedure: Laparoscopic appendectomy Surgeon: Jerald Oneill MD manufacturing assistant: ROSE MARY Dotson the patient is a 27-year-old male did last night because of right lower quadrant pain. His CAT scan was reviewed with the radiologist. She has shows inflammatory changes in the distal appendix consistent with acute appendicitis. He understood the technique of the planned procedure as well as the risks, benefits, and alternatives. He was brought to the operating room placed supine under general anesthesia via endotracheal tube. A Pichardo catheter was inserted. The abdomen was prepped draped in usual sterile fashion. A surgical time-out was done The patient was receiving scheduled IV Zosyn . I made a short supraumbilical incision using blade 15 and this was carried down through the full-thickness of the skin subcutaneous fat down to the fascia. The fascia was incised. The peritoneum was entered. Through this incision a Black port was introduced. Pneumoperitoneum was introduced to a pressure of 15 mm hg. From here on the rest of the procedure was done under vision with the 10 mm laparoscope. With laparoscopic visualization I inserted a 5/12 mm in the left lower quadrant through a small stab incision. A 5 mm port was introduced via a small incision in the supra pubic margin. Graspers were applied through these working ports. The patient was placed in a head down and [id number] position. We reflected the small bowel loops away from the right lower quadrant and by doing so was able to visualize the cecum and the attached appendix running clearly along the side of the pelvis. I was able to grasp the mesentery of appendix to put this on stretch. The appendix was very erythematous on the distal 2/3 consistent with acute appendicitis. The base was not inflamed I used the [place] dissector to cirucmferentially dissect the base.Once this was defined, I transected the base using a 30 mm Endo-GUILLERMO. I divided the mesoappendix using the LigaSure. There was note of bleeding from the appendiceal artery which we were able to control with LigaSure as well . The appendix was delivered through the lower quadrant incision using the endobag. I reinserted all ports and re-insufflated. I examined the area of dissection. After control of the appendiceal artery, there was note of good hemostasis. I examined all 4 quadrants. There was no other pathology. There was no bleeding or any bowel injury seen I irrigated the area little bit. Once hemostasis was confirmed, I proceeded to desufflate through the port sites. I removed all ports under vision with the laparoscope. The umbilical port was removed last. The fascia of the umbilical incision was closed with a [id number] Polysorb 0 stitch. Skin closure was achieved on all incisions using 4-0 subcuticular running sutures. Steri-Strips and dressings were applied. All incisions were infiltrated with Marcaine 0.5% for postop GUILLERMO. The Pichardo catheter was removed. The procedure was completed. The patient tolerated the procedure well. There were no immediate complications. Initial and final counts of sponges and instruments were correct. Estimated blood loss was about 50 cc. The patient was extubated without difficulty and tranferred to the PACU with stable VS.
[2023-06-09] MEDS: oxyCODONE HCl Immed Release 5 MG TABLET PO (10:02)
[2023-06-09] MEDS: Sertraline HCL 50 MG TABLET PO (12:21)
[2023-06-09] MEDS: oxyCODONE HCl Immed Release 5 MG TABLET 10 MG PO (14:02)
--- NOTE | 2023-06-09 14:25 | MHC.CM.PN ---
PT REPORTS HE LIVES AT HOME WITH HIS PARENT HE IS INDEPENDENT WITH CARE, WORKS AND DRIVES PT DENIES USE OF DME OR SERVICES PT COMPLETED A HCP TODAY NAMING HIS MOTHER, PATEL, HIS AGENT PCP: JASKARAN KOENIG DCP: HOME NO SERVICES VIA SELF TRANSPORT
--- NOTE | 2023-06-09 15:38 | PM.EVENT ---
Event Note Date of Service: 06/09/23 Event Note: Seen on afternoon rounds Underwent laparoscopic appendectomy this morning Looks comfortable Abdomen soft Stable vital signs Pain seems adequately controlled Tolerated lunch He says that he is not comfortable with going home today. He says he will go home tomorrow Doing well overall Time Spent With Patient Time: Total time managing care of this patient today ____ minutes.
[2023-06-09] MEDS: 0.9 % Sodium Chloride Flush 3 ML SYRINGE IVFLUSH (20:34)
[2023-06-10 02:51] VITALS: BP 118/67; PULSE 70; RESP 14; TEMP 36.8; O2SAT 97
[2023-06-10] MEDS: oxyCODONE HCl Immed Release 5 MG TABLET PO (06:40)
[2023-06-10 07:04] VITALS: BP 126/81; PULSE 74; RESP 18; TEMP 36.8; O2SAT 98
--- NOTE | 2023-06-10 08:33 | P.DS_ITS ---
DS: Providers Provider Date of Service: 06/10/23 Date of admission: 06/08/23 19:43 Date of discharge: 06/10/23 Primary care physician: Fadumo Nuno MD Attending physician on admission: Jerald Oneill Attending physician on discharge: Jerald Oneill DS: Diagnosis Discharge Diagnosis (1) Appendicitis: Status: Acute DS: Summary Hospital Course Hospital Course: HPI AT ADMISSION: Elie Singh is a 27 year old male admitted for abdominal pain tonight. He says this started Tuesday, which is about 3 days ago. He says the pain has not been severe, but constant on the RLQ and periumbilical area. he describes some nausea this morning but not vomitting. He says he had a similar pain about 1 month ago which lasted for 2 days. He does describes some loose stools for over a week now. He also feels that he seems to have pain on the RLQ with urination as well. He had a leukocytosis. CT scan shows some dilatation of the appendix, with surrounding haziness suggestive of acute appendicitis. HOSPITAL COURSE: He was admitted to the surgical service for further treatment of the acute appendicitis. Treatment options were discussed and he wanted to proceed with appendectomy. He was added onto the OR schedule for that day. On 06/09/23, a laparoscopic appendectomy was performed by Dr. Oneill without complication. The patient tolerated the procedure well. He had an uncomplicated recovery course. On POD #1, he felt well and was tolerating a solid diet without nausea or vomiting and his pain was controlled. He was ambulating. His abdomen was benign with appropriate post op tenderness and dressings c/d/i. He was discharged to home on 06/10/23 in stable condition. He is to follow up in the office in 2 weeks. Status at Discharge Functional status at discharge: independent ambulation Overall status at discharge: patient is progressing back to baseline Time Spent with Patient Time attestation: Total time managing care of this patient today ____ minutes. Discharge coordination time: Less than 30 minutes Quality: Safe Use of Opioids Does Pt have an Active Cancer Diagnosis on the Problem List?: No Quality: Stroke Does the patient have a stroke diagnosis?: No Physical Exam Vital Signs: Vital Signs: Last Vital Signs Temp 98.3 F 06/10/23 07:04 Pulse 74 06/10/23 07:04 Resp 18 06/10/23 07:04 BP 126/81 06/10/23 07:04 Pulse Ox 98 06/10/23 07:04 O2 Del Method Room Air 06/10/23 07:04 O2 Flow Rate 6 06/09/23 09:47 BMI result Body Mass Index 39.5 Const: General: comfortable, no acute distress and alert Orienta tion/consciousness: patient oriented x3 Resp: Effort & Inspection: normal respiratory effort GI: Inspection: No distended and Yes incision (dressing c/d/i) Palpation (GI): Soft to palpation, Tenderness to palpation present (GI) (incisional), no guarding and not rigid Percussion: Yes normal to percussion Skin: General skin exam: no rashes or lesions noted Neuro: General: patient oriented x3 and moves all extremities DS: Data Data Completed and Pending Pending studies at discharge: Pending at discharge 06/09/23 09:27 Surgical [PTH] Routine Discharge Plan Discharge Anticipated Discharge Date/Time: 06/10/23 10:31 Patient Disposition: Home, Self-Care Discharge Diagnosis: acute appendicitis, s/p laparoscopic appendectomy Referrals: Fadumo Nuno MD [Primary Care Provider] - 1 Week Jerald Oneill MD [Physician] - 2 Weeks Discharge Medications: New docusate sodium [Colace] 100 mg capsule 100 mg PO BID PRN (Reason: constipation) Qty: 30 0RF ibuprofen 600 mg tablet 600 mg PO Q6H PRN (Reason: pain) Qty: 30 0RF oxycodone 5 mg tablet 5 mg PO Q4H PRN (Reason: pain (scale score 7-10)) Qty: 24 0RF Rx Instructions: Partial Fill upon patient request. Continued metoprolol succinate 50 mg tablet extended release 24 hr 100 mg PO DAILY sertraline 50 mg tablet 50 mg PO QAM Discharge Orders: Discharge Order (Routine); Ordered 06/10/23 Ordered By: Jerald Oneill Diet: Advance to usual diet Activity on Discharge: No heavy lifting Stand Alone Forms: Patient Portal Discharge page Activity Restrictions/Additional Instructions: If the incision area is tender, you may apply an ice pack for short intervals (No more than 20 minutes on, followed by at least 20 minutes off). Do not apply heat. Do not use creams, lotions, or topical antibiotics. These can cause infection or allergic reaction. Ok to shower 24 hours after your surgery. Remove bandaids in 2 days and replace. You have steri strips (small white cloth strips) covering your incision- these will fall off ~1 week. Follow up in office with Dr. Oneill in 2 weeks. ([phone]) No heavy lifting (>10-20lbs) or strenuous activity! Call Your Doctor If: -Your temperature exceeds 101.5? F -You experience excessive pain or swelling -You have an unexpected reaction to medication -You have excessive bleeding -You experience continued vomiting/nausea -Your incision begins to separate -Your incision shows signs of infection such as increased redness, swelling, excessive pain, drainage (light blood or clear fluid is normal) or heat Care Plan Goals: Return to baseline health and resume normal activities following recovery period. Health Concerns: acute appendicitis hypertension Plan of Treatment: s/p laparoscopic appendectomy f/u in office in 2 weeks Assessment: Doing well post op
--- NOTE | 2023-06-10 08:36 | MHC.CM.PN ---
PT WILL DC HOME TODAY WITH NO SERVICES VIA FAMILY TRANSPORT
[2023-06-10] MEDS: Metoprolol Succinate ER 100 MG TAB.ER.24H PO (08:40)
[2023-06-10] MEDS: Sertraline HCL 50 MG TABLET PO (08:41)
[2023-06-10] MEDS: 0.9 % Sodium Chloride Flush 3 ML SYRINGE IVFLUSH (08:41)
--- NOTE | 2023-06-10 08:57 | PM.PNGS ---
Subjective Subjective Date of Service: 06/10/23 Interval history: feels well says he had a good night tolerating diet says he is ready to be discharged Physical Exam Vital Signs: Vital Signs: Last Vital Signs Temp 98.3 F 06/10/23 07:04 Pulse 74 06/10/23 07:04 Resp 18 06/10/23 07:04 BP 126/81 06/10/23 07:04 Pulse Ox 98 06/10/23 07:04 O2 Del Method Room Air 06/10/23 07:04 O2 Flow Rate 6 06/09/23 09:47 BMI result Body Mass Index 39.5 Const: General: comfortable and no acute distress Resp: Effort & Inspection: normal respiratory effort Cardio: Rate: regular rate GI: Other: incisions clean and dry Palpation (GI): Soft to palpation, not firm and no guarding Objective Data Active Medications Acetaminophen (Acetaminophen 325 Mg Tablet) 650 mg PO Q6H PRN PRN Reason: fever, pain Ketorolac Tromethamine (Ketorolac Tromethamine 30 Mg/Ml Vial) 30 mg IVPUSH Q6H PRN PRN Reason: abdominal pain Metoprolol Succinate (Metoprolol Succinate Er 100 Mg Tab.Er.24h) 100 mg PO DAILY [facility]; Protocol Last Admin: 06/10/23 08:40 Dose: 100 mg Documented By: SHERMAN Morphine Sulfate (Morphine Sulfate 4 Mg/Ml Cartridge) 3 mg IVPUSH Q4H PRN; Protocol PRN Reason: pain, severe Ondansetron HCl (Ondansetron Hcl 4 Mg/2 Ml Vial) 4 mg IVPUSH Q6H PRN PRN Reason: nausea Last Admin: 06/08/23 22:58 Dose: 4 mg Documented By: DAGO Oxycodone HCl (Oxycodone Hcl Immed Release 5 Mg Tablet) 5 mg PO Q4H PRN PRN Reason: Pain, Moderate(Pain Scale 4-6) Last Admin: 06/10/23 06:40 Dose: 5 mg Documented By: JESSICA Oxycodone HCl (Oxycodone Hcl Immed Release 5 Mg Tablet) 10 mg PO Q4H PRN PRN Reason: Pain, Severe (Pain Scale 7-10) Last Admin: 06/09/23 14:02 Dose: 10 mg Documented By: AURE Sertraline HCl (Sertraline Hcl 50 Mg Tablet) 50 mg PO DAILY [facility] Last Admin: 06/10/23 08:41 Dose: 50 mg Documented By: SHERMAN Sodium Chloride (0.9 % Sodium Chloride Flush 3 Ml Syringe) 3 ml IVFLUSH QSHIFT [facility] Last Admin: 06/10/23 08:41 Dose: 3 ml Documented By: SHERMAN Labs 06/09/23 05:04 06/08/23 13:14 Procedures Date of Service Date of Service: 06/10/23 Progress Note: A&P Assessment and plan (1) Appendicitis: Status: Acute Assessment and Plan: s/p lap appendectomy doing well incisions clean and dry looks well ok to dc home dc instructions explained Time Spent With Patient Time: Total time managing care of this patient today ____ minutes. Quality Stroke Does the patient have a stroke diagnosis?: No VTE Prior VTE?: No VTE Risk Level:: Medical - low VTE Device Contraindication: N/A - Device Ordered VTE Drug Contraindication: Treatment Not Indicated
--- NOTE | 2023-06-10 14:38 | HO.POSTANES ---
Post Anesthesia Evaluation Post Anesthesia Evaluation Date of Service: 06/09/23 Vital Signs: Vital Signs Temp Pulse Resp BP Pulse Ox O2 Del Method 06/10/23 07:04 98.3 F 74 18 126/81 98 Room Air 06/10/23 02:51 98.2 F 70 14 118/67 97 Room Air Comments: Pt. discharged home prior to post-anesthesia visit.
== END 2023-06-10 09:45 | disposition home or self-care (01) | DRG 225 ==
LOC: HO.ED 17:13 → HO.EDOVER 19:58 → HO.S3 20:08
PROVIDERS: Nurse Practitioner Family; Physician Assistant Medical; Admitting Provider Surgery; Emergency Provider Emergency Medicine; PCP Internal Medicine; Visit Provider Surgery
PROC: 0DTJ4ZZ Resection of Appendix, Percutaneous Endoscopic Approach (ICD-10-PCS; CPT 44970; principal; 2023-06-09 08:30)
DX: K35.80 Unspecified acute appendicitis (principal); I10 Essential (primary) hypertension; F32.A Depression, unspecified; Z79.899 Other long term (current) drug therapy
CPT/HCPCS: 36415; 74177; 80048; 80076; 81003; 83690; 84484; 85025; 85027; 88304; 93005; 99285; J1100; J1885; J1956; J2250; J2405; J2543; J3010; Q9967

== ENCOUNTER → 2023-06-08 19:43 | Outpatient (BNV) | payer BC, SELFPAY | PROVIDERS: Admitting Provider Surgery; Emergency Provider Emergency Medicine; PCP Internal Medicine; Visit Provider Surgery | DX: K35.890 Other acute appendicitis without perforation or gangrene (principal) | CPT/HCPCS: 44970; 99024; 99222; 99499 ==

== ENCOUNTER 2023-06-22 10:34 | Outpatient (AMB) | payer BC, SELFPAY ==
--- NOTE | 2023-06-22 10:39 | A.OFFVIS_ITS ---
Intake Vital Signs 06/22/23 10:44 Weight 252 lb BP 130/74 Blood Pressure Location Rt brachial Position Sitting Pulse 91 Intake Visit Reasons: Laparoscopic appendectomy Intake Note: This patient presents for a post-op assessment status post laparoscopic appendectomy. Patient c/o; reports occasional ache. 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 He underwent laparoscopic appendectomy last 06/09/2023 for acute appendicitis. He tolerated procedure well He says he has been doing well at home. He has good GI functions. He has good oral intake. He denies any significant pain. [facility] Medical History Hypertension Depression Surgical History (Updated 06/22/23 @ 10:54 by Jerald Oneill MD) Status post laparoscopic appendectomy History of laparoscopic appendectomy (~06/09/23) Social History Household Members: Family Housing: House Do you presently have visiting nurse or other home services: No Alcohol intake: never Patient Tobacco Use Status: Never used Tobacco Second Hand Smoke Exposure: No service: No Review of Systems Const Denies chills and Denies fever(s) Card Denies chest pain, Denies dyspnea and Denies dyspnea on exertion Resp Denies cough, Denies dyspnea and Denies dyspnea on exertion GI Denies hematochezia and Denies change in bowel habits Denies hematuria and Denies difficulty urinating Musc Denies back pain and Denies limited range of motion Neuro Denies focal weakness and Denies convulsions Psych Denies depression and Denies mood swings Physical Exam Vital Signs: Last Vital Signs Pulse 91 06/22/23 10:44 BP 130/74 06/22/23 10:44 Const Other: Obese General: comfortable and no acute distress Resp Effort & Inspection: normal respiratory effort GI Other: All incisions are well healed, not infected, no hernias Palpation (GI): Soft to palpation, not firm and no guarding Assessment & Plan Assessment & Plan (1) Status post laparoscopic appendectomy: Code(s): Z90.49 - Acquired absence of other specified parts of digestive tract Plan: He is doing very well postoperatively. All incisions are well healed. He has good GI functions I emphasized to him to avoid any lifting more than 20 lb for at least 2 more weeks. He can otherwise follow up on a p.r.n. basis. Coding Level of Care Code Global (87771) Diagnoses Status post laparoscopic appendectomy Z90.49
[2023-06-22 10:44] VITALS: BP 130/74; PULSE 91
== END 2023-06-22 10:52 | disposition home or self-care (01) ==
PROVIDERS: PCP Internal Medicine; Visit Provider Surgery
DX: Z90.49 Acquired absence of other specified parts of digestive tract (principal)
CPT/HCPCS: 99024

== ENCOUNTER → 2023-06-22 10:34 | Outpatient (BNVA) | payer BC, SELFPAY | PROVIDERS: PCP Internal Medicine; Visit Provider Surgery ==

== ENCOUNTER → 2023-06-23 10:02 | Outpatient (REF) | payer BC, SELFPAY ==
--- NOTE | 2023-06-23 10:05 | CA_ITS ---
Transthoracic Echocardiogram Patient (Last, First, Middle): Elie Singh, Gender: Male Date of : 1995 Age: 27 Procedure Date: 06/23/2023 Procedure Type: Transthoracic Echocardiogram Location: OP Height: 170.18 cm Weight: 114.31 kg BSA: 2.23 m2 Heart Rate: 76 bpm BP: 115 / 85 mmHg Flow Specialist: ELISA Referring MD: Fadumo Nuno MD Symptoms: HTN Study Quality: Fair ECG Rhythm: Sinus Conclusions: - The left ventricular systolic function is normal. The visually estimated ejection fraction is between 55-60%. - No obvious valvular pathology seen on this study. Findings Left Ventricle Normal left ventricular cavity size. There is normal left ventricular wall thickness. The left ventricular systolic function is normal. The visually estimated ejection fraction is between 55-60%. Regional wall motion abnormalities can not be excluded due to suboptimal endocardial definition. Diastolic function is normal for age. Right Ventricle Normal right ventricular cavity size and systolic function. Atria Both atria are normal in size. Aortic Valve There is a normal trileaflet aortic valve. There is no aortic valve stenosis. There is no aortic valve regurgitation. Mitral Valve The mitral valve appears normal. There is no mitral valve regurgitation. There is no mitral valve stenosis. Pulmonic Valve The pulmonic valve is likely normal. Tricuspid Valve There is no tricuspid valve regurgitation. Tricuspid regurgitation envelope is inadequate for calculation of right ventricular systolic pressure. Great Vessels The asc aorta is normal in size. Venous The inferior vena cava is normal in size and collapses greater than 50% with inspiration. Pericardium/Pleural There is no evidence of pericardial effusion. Prior Study Comparison No prior study available for comparison. Recommendations, Care & Conclusions No obvious valvular pathology seen on this study. Measurements 2D Linear Measurements IVSd: 0.93 0.6-0.9/0.6-1.0 cm LVIDd: 4.94 3.9-5.3/4.2-5.9 cm LVIDd Index: 2.22 2.4-3.2/2.2-3.1 cm/m2 LVIDs: 3.52 2.0-3.6 cm LVPWd: 0.90 0.7-1.1 cm LA Diam: 3.90 2.7-3.8/3.0-4.0 cm LAIDs Index: 1.75 1.5-2.3 cm/m2 LV Mass: 197.32 67-162/88-224 g LV Mass Index: 88.49 43-95/49-115 g/m2 LVOT Diam: 2.10 3.0+(-)1.3 cm 2D Systolic Function EF 4C: 52.00 >55% EF 2C: 50.80 >55% Mitral Valve MV Pk E: 1.14 MV PK A: 0.58 MV Decel Time: 158.00 E/A: 2.00 E'Lateral: 14.90 E'Medial: 11.30 E/E' Med: 10.10 E/E' Lat: 7.70 PHT: 46.00 MVA PHT: 4.78 Decel [place]: 7.22 Aortic Valve AoV Pk Fernando: 1.17 AoV Mn Fernando: 0.93 AoV VTI: 0.26 AoV Pk Grad: 5.00 Aov Mn Grad: 4.00 ONESIMO Cont.VTI: 2.41 LVOT LVOT Pk Fernando: 0.96 LVOT Mn Fernando: 0.60 LVOT VTI: 0.18 LVOT Pk Grad: 4.00 LVOT Mn Grad: 2.00 LVOT Diam: 2.10 LVOT Area: 3.46 Diastolic Function MV Pk E: 1.14 MV Pk A: 0.58 E/A: 2.00 E'Medial: 11.30 E/E' Med: 10.10 E' Laterial: 14.90 E/E' Lat: 7.70 Right Ventricle TAPSE (mm): 19.80 TVS' Fernando: 9.90 Tricuspid Valve RA Press: 3.00 Great Vessels Aorta Sinus of Valsalva: 3.30 2.0-3.5 cm Ao Asc: 2.90 2.1-3.4 cm Pulmonary Valve PV Pk Fernando: 1.03 Peak PV Grad: 4.00 Updated in Other Vendor System with Status of Final Julian Guerra MD electronically signed on 06/23/2023 3:46:38 PM with status of Final
== END ==
LOC: HO.CARD 10:02
PROVIDERS: PCP Internal Medicine; Visit Provider Internal Medicine
DX: I10 Essential (primary) hypertension (principal)
CPT/HCPCS: 93306

== ENCOUNTER → 2023-06-23 10:05 | Outpatient (BNV) | payer BC, SELFPAY | PROVIDERS: PCP Internal Medicine; Visit Provider Internal Medicine | DX: R94.31 Abnormal electrocardiogram [ECG] [EKG] (principal); I10 Essential (primary) hypertension | CPT/HCPCS: 93306 ==

== ENCOUNTER 2023-09-15 08:52 | Outpatient (AMB) | payer BC, SELFPAY ==
--- NOTE | 2023-09-15 08:56 | MHC.OFFVIS ---
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 Patient's 27-year-old male with what appears to be prior history of anxiety although he said for about a week he is off sertraline as he ran out of the prescription. He did not call your office to renew the prescription. Patient now feels a little dizzy being off it. Also noticed to have slightly elevated heart rate today. Patient says in the last many months he has had recurrent episodes of fast heart rate associated with elevated blood pressure he feels. He has got EKGs done 4 times in all of them and been negative. Since May he has been prescribed metoprolol for elevated blood pressure and he says symptoms have been better and mitigated but not completely resolved. He initially thought he symptoms related to acute appendicitis and once that had resolved he felt better but then episodes of started coming back again. He had blood workup done in May which had shown normal TSH and normal labs otherwise. He remains fairly anxious. He denies any exertional chest pain, shortness of breath, orthopnea, PND. He said he struggles with his weight and had joined the gym but was concerned about activating his anxiety/symptoms of palpitations. [facility] Medical History Hypertension Depression Surgical History Status post laparoscopic appendectomy History of laparoscopic appendectomy (~06/09/23) Social History Household Members: Family Housing: House Do you presently have visiting nurse or other home services: No Alcohol intake: never Patient Tobacco Use Status: Never used Tobacco Second Hand Smoke Exposure: No service: No Review of Systems Const Reports chills, Reports fatigue, Reports fever(s), Reports frequent falls, Reports weakness, Reports weight gain and Reports weight loss ENT Reports dizziness Card Reports chest pain, Reports leg edema, Reports lightheadedness, Reports palpitations, Reports dyspnea, Reports dyspnea on exertion and Reports orthopnea Resp Reports cough, Reports dyspnea and Reports dyspnea on exertion GI Reports bloating and Reports change in bowel habits Musc Reports muscle weakness, Reports numbness and Reports tingling Neuro Reports dizziness, Reports frequent falls, Reports numbness, Reports tingling and Reports weakness Endo Reports fatigue and Reports palpitations Physical Exam Vital Signs: Last Vital Signs Pulse 96 09/15/23 08:57 BP 130/70 09/15/23 08:57 BMI result Body Mass Index 42.6 Const General: cooperative, comfortable, no acute distress, alert, awake, Physically active and anxious Nutritional Appearance: obese Orientation/consciousness: patient oriented x3 Limitations: no limitations HEENT Head: Yes normocephalic and Yes atraumatic Neck Neck: Yes trachea midline, Yes supple and Yes no JVD Resp Effort & Inspection: normal respiratory effort Auscultation: clear to auscultation bilaterally Cardio Jugular venous distension: no JVD Palpation: normal PMI Rate: regular rate Rhythm: regular rhythm Heart sounds: S1 normal heart sound present, S2 normal heart sound present, no click, no gallops, no murmurs and no rubs GI Auscultation: normal bowel sounds Skin General skin exam: no rashes or lesions noted Neuro General: patient oriented x3 and no focal motor deficits Extrem General: Yes no clubbing, cyanosis or edema Office Procedures EKG Details: EKG shows normal sinus rhythm with normal EKG [id number], Complete Assessment & Plan Assessment & Plan (1) Palpitations: Code(s): R00.2 - Palpitations Plan: Patient with intermittent episodes of severe palpitation associated with elevated blood pressure. Will screen for pheochromocytoma although likelihood is low. Most likely related to anxiety/panic attacks. This needs to be better control. Advise not to just stop his anxiety/depression medications. Advised to call or office right away. It might be related to his lifestyle and advised to participate in regular physical activity and weight loss program. (2) Hypertension: Code(s): I10 - Essential (primary) hypertension Plan: Hypertension which is currently optimized on metoprolol therapy. Continue the same. Although in the long run I think he will benefit from more lifestyle modifications and medications. This was discussed with him. Participate in aggressive but gradual weight loss program regular physical activity. Consider workup for sleep apnea. Workup for pheochromocytoma as above. Will follow up in the clinic if need be. Thank you for allowing me to partake in his care Orders: Orders Metanephrines, Plasma Today I10 - Essential (primary) hypertension ECG 30 day event monitor Today R00.2 - Palpitations Coding Level of Care Code New Pt Level 3 (14481) Diagnoses Palpitations R00.2 Hypertension I10 CPT Codes EKG - CPT: 18479-[id number], Complete ([id number])
[2023-09-15 08:57] VITALS: BP 130/70; PULSE 96; BMI 42.6
== END 2023-09-15 09:26 | disposition home or self-care (01) ==
PROVIDERS: PCP Internal Medicine; Visit Provider Internal Medicine Cardiovascular Disease
DX: R00.2 Palpitations (principal); I10 Essential (primary) hypertension
CPT/HCPCS: 93010; 99203

== ENCOUNTER 2023-09-15 08:52 | Outpatient (REF) | payer BC, MEDICAID, SELFPAY ==
[2023-09-21 15:54] LABS: Metanephrine, Free <25 pg/mL (<=57); Normetanephrines, Free 76 pg/mL (<=148); Total Metanephrine, Free 76 pg/mL (<=205)
== END 2023-09-15 08:53 | disposition home or self-care (01) ==
LOC: HO.LAB 08:52
PROVIDERS: PCP Internal Medicine; Visit Provider Internal Medicine Cardiovascular Disease
DX: I10 Essential (primary) hypertension (principal); R00.2 Palpitations
CPT/HCPCS: 36415; 83835; 93005

== ENCOUNTER → 2023-10-12 14:04 | Outpatient (REF) | payer BC, SELFPAY ==
--- NOTE | 2023-10-12 14:06 | HM_ITS ---
Cardiac event monitor Indication: Palpitations Technique: Patient was hooked up to cardiac event monitor on 10/12/2019 for total of 30 days. Compliance rate was about 78%. Findings: Baseline was normal sinus rhythm with minimal heart rate of 63 beats per minute and maximum heart rate 141 beats per minute sinus tachycardia. There were no pauses noted. There were rare supraventricular and ventricular ectopy noted with less than 1% total burden. Patient reported 2 symptoms 1 of which correlated with sinus rhythm the other with PAC. Conclusion: 1. Baseline was normal sinus rhythm with no significant pauses 2. Rare ectopy noted 3. One of the 2 patient reported symptoms correlated with isolated PACs MTDD
== END ==
LOC: HO.CARD 14:04
PROVIDERS: PCP Internal Medicine; Visit Provider Internal Medicine Cardiovascular Disease
DX: R00.2 Palpitations (principal)
CPT/HCPCS: 93270

== ENCOUNTER → 2023-10-12 14:06 | Outpatient (BNV) | payer BC, SELFPAY | PROVIDERS: PCP Internal Medicine; Visit Provider Internal Medicine Cardiovascular Disease | DX: R00.0 Tachycardia, unspecified (principal) | CPT/HCPCS: 93272 ==

== ENCOUNTER 2024-01-14 10:43 | Outpatient (REF) | payer BC, SELFPAY ==
[2024-01-14 12:10] LABS: Alanine Aminotransferase 32 U/L (0-40); Albumin Level 4.1 g/dL (3.5-5.0); Alkaline Phosphatase 62 U/L (39-117); Anion Gap 12 (12-20); Aspartate Amino Transferase 23 U/L (5-37); Bilirubin Total 0.4 mg/dL (0.0-1.0); Blood Urea Nitrogen 13 mg/dL (9-16); Calcium 9.2 mg/dL (8.4-10.2); Carbon Dioxide 26 mmol/L (22-29); Chloride 104 mmol/L (96-108); Estimated Glomerular Filt Rate > 60; Glucose Random 178 mg/dL (60-115); Sodium 138 mmol/L (135-145); Total Protein 7.8 g/dL (6.5-8.0)
== END 2024-01-14 10:44 | disposition home or self-care (01) ==
LOC: HO.LAB 10:43
PROVIDERS: PCP Internal Medicine; Visit Provider Internal Medicine
DX: F32.5 Major depressive disorder, single episode, in full remission (principal); F41.8 Other specified anxiety disorders; I10 Essential (primary) hypertension; R63.5 Abnormal weight gain
CPT/HCPCS: 36415; 80053

== ENCOUNTER 2024-05-02 11:26 | Day surgery (SDC) | payer BC, SELFPAY ==
--- NOTE | 2024-05-01 11:45 | P.CONAN_ITS ---
Documented by User: Jennifer Ny NP 05/01/24 11:46 HPI - Anesthesia Eval Consult details Narrative: 28yo M for Colonoscopy [facility] Active Problems Active Problems: All Active Problems Status post laparoscopic appendectomy (Acute) Hypertension (Acute) Depression (Acute) Past Medical History Medical History Hypertension Depression Family History Family history of problems with anesthesia: No Surgical History Surgical History Status post laparoscopic appendectomy History of laparoscopic appendectomy (~06/09/23) History of Problems with Anesthesia: No Social History Social History Household Members: Family Housing: House Do you presently have visiting nurse or other home services: No Alcohol intake: never Patient Tobacco Use Status: Never used Tobacco Second Hand Smoke Exposure: No Are you DNR?: No Advance Directives: No Advance Directives Information Provided: Yes service: No Meds Allergies Allergy/AdvReac Type Severity Reaction Status Date / Time No Known Allergies Allergy Verified 06/22/23 10:45 Home Medications ?Medication ?Instructions ?Recorded ?Confirmed ?Last Taken ?Type metoprolol succinate 50 mg 100 mg PO DAILY 06/08/23 09/15/23 05/02/24 History tablet,extended release 24 hr sertraline 50 mg tablet 50 mg PO QAM 06/08/23 09/15/23 05/02/24 History Assessment and Plan Assessment Anesthesia Assessment: Chart Reviewed Final Anesthetic Review Family History of Problems with Anesthesia: No History of Problems with Anesthesia: No Documented by User: Jessica Penny MD 05/02/24 12:40 [facility] Past Medical History Medical History Hypertension Depression Surgical History Surgical History Status post laparoscopic appendectomy History of laparoscopic appendectomy (~06/09/23) Social History Social History Household Members: Family Housing: House Do you presently have visiting nurse or other home services: No Alcohol intake: never Patient Tobacco Use Status: Never used Tobacco Second Hand Smoke Exposure: No Are you DNR?: No Advance Directives: No Advance Directives Information Provided: Yes service: No Meds Allergies Allergy/AdvReac Type Severity Reaction Status Date / Time No Known Allergies Allergy Verified 06/22/23 10:45 Home Medications ?Medication ?Instructions ?Recorded ?Confirmed ?Last Taken ?Type metoprolol succinate 50 mg 100 mg PO DAILY 06/08/23 09/15/23 05/02/24 History tablet,extended release 24 hr sertraline 50 mg tablet 50 mg PO QAM 06/08/23 09/15/23 05/02/24 History Exam Airway Mallampati Class: III TM Dist: >3cm Neck ROM: Full Assessment and Plan Assessment Anesthesia Assessment: Anesthesia Plan Discussed Final Anesthetic Review NPO: Yes ASA Class: III Final Preanesthetic Review: No Changes in Pt Med Stat, Meds/Allgs Chart Reviewed, Consent Obtained/Reviewed and Anes Risks/Benef Reviewed Patient Risk: Intermediate Procedure Risk: Low Anesthetic Plan Anesthetic Plan: TIVA Disposition: Standard PACU
--- NOTE | 2024-05-02 07:41 | MHC.SHP ---
Pre-Procedural Eval Section A - 24 Hr Update-Section A only Date of Service: 05/02/24 The patient is an INPATIENT: No Changes since office visit: No Cold of Flu in the past 2 weeks, No New Medical Problems, No Changes in Medication and No Patient answered all questions The patient has been examined within 24 hours of the surgical procedure. The History & Physical has been completed within 30 days and I have reviewed it.: Yes Section B - Complete if H&P > 30 days Chief Complaint: Change in bowel habit Allergies: Allergies Allergy/AdvReac Type Severity Reaction Status Date / Time No Known Allergies Allergy Verified 06/22/23 10:45 Plan I have reviewed the history and physical and performed a pertinent physical examination on my patient. No changes have occurred unless specified. Time Spent With Patient Time: Total time managing care of this patient today ____ minutes.
[2024-05-02 11:55] VITALS: BP 125/88; PULSE 91; RESP 20; TEMP 36.9; O2SAT 96; BMI 44.7
[2024-05-02] MEDS: Lactated Ringers 1,000 ML 100 ML IVCONT (12:07)
[2024-05-02 13:51] VITALS: BP 91/50; PULSE 80; RESP 16; TEMP 36.1; O2SAT 96
[2024-05-02 14:06] VITALS: BP 102/56; PULSE 80; RESP 18; TEMP 36.1; O2SAT 97
--- NOTE | 2024-05-02 15:09 | OP_ITS ---
DATE OF SERVICE: 05/02/2024 SURGEON: Ge Anaya MD INDICATIONS: Change in bowel habits. PREOPERATIVE DIAGNOSIS: POSTOPERATIVE DIAGNOSIS: PROCEDURE PERFORMED: Colonoscopy to the terminal ileum with biopsy and snare polypectomy. ESTIMATED BLOOD LOSS: COMPLICATIONS: ANESTHESIA: Monitored anesthesia care. ASSISTANTS: SPECIMENS: DESCRIPTION OF PROCEDURE: A history and physical was performed. The risks and benefits of the procedure were explained to the patient and informed consent was obtained. The patient was placed in the left lateral decubitus position. A digital rectal exam was performed and was found to be normal. The Olympus pediatric video colonoscope was introduced into the rectum and advanced to the cecum. The cecum was identified by transillumination, palpation, and identification of ileocecal valve. Examination was performed and the scope was removed. He tolerated the procedure well and was returned to recovery area in stable condition. FINDINGS: The terminal ileum was examined and appeared normal. A single biopsy was obtained from the terminal ileum. There was no evidence of Crohn disease. There was a large amount of liquid stool and some formed stool obscuring the colon. This was washed and suctioned as best possible. The area around the appendiceal orifice and the cecum was carefully washed and showed no evidence of colitis or Crohn disease. Biopsies were obtained from the cecum and sigmoid colon. The mucosa that was visualized throughout the colon appeared normal without evidence of inflammatory bowel disease. At 15 cm, was a 10 mm polyp, which appeared inflammatory. This was removed with a hot snare and the base was cauterized. No other polyps were identified. Retroflexed examination showed some small internal hemorrhoids. IMPRESSION: Colon polyp. RECOMMENDATION: Follow up the biopsy results. MD SIERRA Sanders/BRITTNEYL / [id number]
== END 2024-05-02 15:14 | disposition home or self-care (01) ==
PROVIDERS: PCP Internal Medicine; Visit Provider Internal Medicine Gastroenterology
PROC: 0DJD8ZZ Inspection of Lower Intestinal Tract, Via Natural or Artificial Opening Endoscopic (ICD-10-PCS; CPT 45378; principal; 2024-05-02 12:50)
DX: R19.4 Change in bowel habit (principal); K51.40 Inflammatory polyps of colon without complications; K64.8 Other hemorrhoids; I10 Essential (primary) hypertension; G47.33 Obstructive sleep apnea (adult) (pediatric); J45.909 Unspecified asthma, uncomplicated; F41.8 Other specified anxiety disorders; Z99.89 Dependence on other enabling machines and devices; Z79.899 Other long term (current) drug therapy
CPT/HCPCS: 45385; 45380; 88305; J2704

== ENCOUNTER 2024-05-05 10:41 | Outpatient (REF) | payer BC, SELFPAY ==
[2024-05-05 11:56] LABS: Estimated Average Glucose 100 mg/dL; Hemoglobin A1c % 5.1 % (<6.0)
[2024-05-05 12:10] LABS: Alanine Aminotransferase 26 U/L (0-40); Albumin Level 4.2 g/dL (3.5-5.0); Alkaline Phosphatase 66 U/L (39-117); Anion Gap 15 (12-20); Aspartate Amino Transferase 18 U/L (5-37); Bilirubin Total 0.3 mg/dL (0.0-1.0); Blood Urea Nitrogen 11 mg/dL (9-16); Calcium 9.5 mg/dL (8.4-10.2); Carbon Dioxide 23 mmol/L (22-29); Chloride 106 mmol/L (96-108); Cholesterol 122 mg/dL (<200); Estimated Glomerular Filt Rate > 60; Glucose Random 87 mg/dL (60-115); HDL Cholesterol 26 mg/dL (>40); LDL Cholesterol Calculated 83 mg/dL (<100); Sodium 140 mmol/L (135-145); Total Protein 7.9 g/dL (6.5-8.0); Triglycerides 67 mg/dL (<150)
[2024-05-05 12:25] LABS: Thyroid Stimulating Hormone 0.62 uIU/mL (0.32-4.0)
== END 2024-05-05 10:42 | disposition home or self-care (01) ==
LOC: HO.LAB 10:41
PROVIDERS: PCP Internal Medicine; Visit Provider Internal Medicine
DX: F32.5 Major depressive disorder, single episode, in full remission (principal); I10 Essential (primary) hypertension; K58.0 Irritable bowel syndrome with diarrhea; R73.01 Impaired fasting glucose
CPT/HCPCS: 36415; 80053; 80061; 83036; 84443

== ENCOUNTER 2025-04-20 07:12 | Outpatient (REF) | payer BC, SELFPAY ==
--- OUTSIDE RECORDS SUMMARY | 2025-04-20 07:15 | XMS_ITS | Clinical Summary ---
Author Organization [facility] Facility Address [address] [place] [address] Care Team Providers Care Bonded Strand Operator Name Role Phone Fadumo Nuno MD Primary Care Provider [phone] Allergies No known active allergies Medications No known medications Active Problems Problem Noted Date Diagnosed Date Hypertension 01/24/2023 Family History Medical History Relation Comments Diabetes Father Hypertension Father Relation Status Comments Father Alive Mother Alive Social History Tobacco Use Types Packs/Day Years Used Date Smoking Tobacco: Never Smokeless Tobacco: Never Tobacco Cessation:Counseling Given: Not Answered Alcohol Use Standard Drinks/Week Comments Yes 0 (1 standard drink = 0.6 oz pur e alcohol) ocassionally Sex and Gender Information Value Date Recorded Sex Assigned at Not on file Legal Sex Male 11:00 AM EDT Gender Identity Not on file Sexual Orientation Not on file Last Filed Vital Signs Vital Sign Reading Time Taken Comments Blood Pressure 128/80 01/25/2023 10:53 AM EDT Pulse 92 01/25/2023 10:53 AM EDT Temperature - - Respiratory Rate - - Oxygen Saturation 97% 01/25/2023 10:53 AM EDT Inhaled Oxygen Concentration - - Weight 119 kg (263 lb 6.4 oz) 01/25/2023 10:53 A M EDT Height 170.2 cm (5' 7 ) 01/25/2023 10:53 AM EDT Body Mass Index 41.25 01/25/2023 10:53 AM EDT Plan of Treatment Health Maintenance Due Date Last Done Comments Pneumococcal Vaccine: Peds ( 0 to 5 Years) and At-Risk Patients (6 to 49 Years) (1 of 2 - PCV) 2015 Influenza Vaccine (#1) 2025 7, 08/14/2015, 06/25/2014, Additional history exists Hepatitis B Vaccine Completed 11/30/1997, 1996, 1996 Insurance Medicaid [place] [facility] [place] [facility] Care Teams Bonded Strand Operator Relationship Specialty Start Date End Date Fadumo Nuno MD [address] [place] [address] PCP - General Internal Medicine 11/01/22
--- OUTSIDE RECORDS SUMMARY | 2025-04-20 07:15 | XMS_ITS | Patient Health Record ---
Author Organization [facility] Address [address] [facility] [address] [place] [id number] Care Team Providers Care Quality Systems Technician Name Role Phone Yaakov Fadumo Primary Care Provider Unavailab Ge Sanz Jr Unavailable [phone] Results Component Value Reference Range Notes Pathology Reviewed date:05/07/2024 08:36:44 AM Interpretation: Performing Lab:[facility], [address] [place] [phone] Notes/Report: Reason For Referral Referring Provider First Name Fadumo Referring Provider Last Name Yaakov Referring Provider Speciality Internal M edicine Referred Organization [facility] Referred Provider Ge Anaya Jr Referred Address [address] [place] [address],[place] [address] [place] [phone], Referred Provider Specialty Gastroentero logy General Notes Magdalena Corbett 024 10:08:51 AM EDT > requested referral again from Dr. Nuno's office for visit with Dr. Anaya on 04-27-2024....spoke with Zuleika at Dr. Nuno's office, Magdalena Corbett 04/30/2024 02:50:44 PM EDT > requested again, Magdalena Corbett 05/02/2024 11:50:23 AM EDT > requested referral Referral Priority Routine Medications Medication SIG (Take, Route, Frequency, Duration) Notes Start Date End Date Status MiraLax (colon prep) 17 GM/SCOOP mixed with Gatorade or Crystal Light Orally begin at 5:00 p.m. the day before the procedure for 1 day 04/27/2024 Active Metoprolol Succinate Active Sertraline HCl Activ e Social History Tobacco Use: Social History Observation Description Date Details (start date - stop date) Never Smoker NA - NA Tobacco Use/Smoking Question Answer Notes Patient is a nonsmoker Alcohol Screen Question Answer Notes Did you have a drink containing alcohol in the p ast year? No Points 0 Interpretation Negative Problems Problem Type SNOMED Code ICD Code Onset Dates Problem Status W/U Status Risk Notes Problem 13538785 Change in bowel movement (R19.8) Active confirmed Vital Signs Blood pressure diastolic 00 mm Hg 04/27/2024 Height 5 ft 7 in in 04/27/2024 Blood pressure systolic 00 mm Hg 04/27/2024 Weight 285 lbs 04/27/2024 BMI 44.63 kg/m2 04/27/2024 Encounters Encounter Location Date Provider Diagnosis [facility] Outpatient [address] [place] [id number] 05/02/2024 Ge Anaya Jr Colon polyps K63.5 and Change in bowel function R19.8 [facility] [address] [place] [phone] 04/27/2024 Ge Anaya Jr Change in bowel movement R19.8 [facility] [address] [place] [phone] 05/07/2024 Ge Anaya Jr Assessments Encounter Date Diagnosis (ICD Code) Assessment Notes Treatment Notes Treatment Clinical Notes Section Notes 05/02/2024 Colon polyps (ICD-10 - K63.5) 05/02/2024 Change in bowel function (ICD-10 - R19.8) 04/27/2024 Change in bowel movement (ICD-10 - R19.8) Colonoscopy material was printed We discussed his symptoms today. We discussed possible causes for this including colitis, Crohn's disease, and year-old bowel syndrome. He will have further evaluation with colonoscopy because of his symptoms. He is aware of risks and benefits and agrees to proceed. Plan Of Treatment Future Test Test Name Order Date COLONOSCOPY 04/27/2024 Insurance Providers Payer Name Payer Address Payer Phone Subscriber Number Group Number Insured Name Patient Relationship to Insured Coverage Start Date Coverage End Date [facility] [employer] [address] [place] [address] [phone] [id number] JUAN CARLOS FERNANDO Self - patient is the insured Medical (General) History Medical History History ICD Code Hypertension CHRISTINE/CPAP Asthma, in remission Anxiety/depression Elevated body mass index Surgical History Surgery Date(Month/Year) appendectomy
--- OUTSIDE RECORDS SUMMARY | 2025-04-20 07:15 | XMS_ITS | Encounter Summary ---
Author Organization [facility] Address [address] [place] [address] Phone Care Team Providers Care Pulp Mixer Name Role Phone Ha Park MD Primary Care Provider [phone] Encounter Details Date Type Department Care Team (Late st Contact Info) Description 03/22/2012 Documentation EM Family Medicine [address] [place] [address] Family Medicine, Physician [address] [place], [place] [id number] Social History Tobacco Use Types Packs/Day Years Used Date Smoking Tobacco: Never Assessed Sex and Gender Information Value Date Recorded Sex Assigned at Not on file Legal Sex Male 5:20 PM EDT Gender Identity Not on file Sexual Orientation Not on file documented as of this encounter Plan of Treatment Not on file documented as of this encounter Visit Diagnoses Not on filedocumented in this encounter Care Teams Pulp Mixer Relationship Specialty Start Date End Date Ha Park MD [address] [place] [address] [place] [address] PCP - General 05/20/17 01/17/23 documented as of this encounter
[2025-04-20 07:57] LABS: Hemoglobin A1C 141.1107 umol/L; Total Hemoglobin (HGBA1C) 3693.5327 umol/L
[2025-04-20 08:14] LABS: Alanine Aminotransferase 35 U/L (0-40); Albumin Level 4.3 g/dL (3.5-5.0); Alkaline Phosphatase 62 U/L (39-117); Anion Gap 12 (12-20); Aspartate Amino Transferase 25 U/L (5-37); Blood Urea Nitrogen 11 mg/dL (9-16); Calcium 8.8 mg/dL (8.4-10.2); Carbon Dioxide 26 mmol/L (22-29); Chloride 105 mmol/L (96-108); Estimated Glomerular Filt Rate > 60; Potassium 3.9 mmol/L (3.3-5.1); Sodium 139 mmol/L (135-145); Total Protein 7.4 g/dL (6.5-8.0)
[2025-04-20 08:30] LABS: Thyroid Stimulating Hormone 1.03 uIU/mL (0.32-4.0)
== END 2025-04-20 07:13 | disposition home or self-care (01) ==
LOC: HO.LAB 07:12
PROVIDERS: PCP Internal Medicine; Visit Provider Internal Medicine
DX: F32.5 Major depressive disorder, single episode, in full remission (principal); G47.33 Obstructive sleep apnea (adult) (pediatric); I10 Essential (primary) hypertension; R63.5 Abnormal weight gain; Z13.1 Encounter for screening for diabetes mellitus
CPT/HCPCS: 36415; 80053; 83036; 84443